=== PATIENT | female | born 1990 | race Caucasian/White ===

== ENCOUNTER 2017-03-22 05:44 | Emergency (ER) | payer SELFPAY ==
[2017-03-22] MEDS ORDERED: Ketorolac 30 MG/ML SDV IVPUSH ONE (05:59)
[2017-03-22] MEDS ORDERED: Ondansetron 4 MG/2 ML SDV IVPUSH ONE (05:59)
[2017-03-22] MEDS ORDERED: Sodium Chloride 0.9% 10 ML Syringe FLUSH PRN (06:00)
--- NOTE | 2017-03-22 06:05 | EDM.PDOC ---
<Jaelyn Hodges - Last Filed: 03/22/17 06:17> ED HPI GENERAL MEDICAL PROBLEM - General Chief Complaint: Lower Extremity Injury/Pain Stated Complaint: Right knee pain Time Seen by Provider: 03/22/17 05:50 Source of Information: Reports: Patient History Limitations: Reports: Intoxication - History of Present Illness INITIAL COMMENTS - FREE TEXT/NARRATIVE: Patient comes in to the emergency department tonight with her sister who states that the patient was crying in her bed because of the pain. Prior to that the patient remembers that early in she tripped and fell landing on her right knee after that she noted that she had significant amount of discomfort and pain and abrasion. She has been unable to bear weight on that M and states she has limited range of motion because of the pain. Patient denies hitting the head in dizzy or lightheaded. Denies having numbness or tingling in that extremity. Pt has had a significant amount of alcohol. Onset: Sudden Quality: Reports: Throbbing Severity: Moderate Improves with: Reports: Immobilization Worsens with: Reports: Movement Associated Symptoms: Reports: No Other Symptoms - Related Data Allergies Allergy/AdvReac Type Severity Reaction Status Date / Time No Known Allergies Allergy Verified 03/22/17 05:57 Home Meds: Home Meds . [No Known Home Meds] 03/22/17 [History] Review of Systems - Review of Systems Constitutional: Reports: No Symptoms Eyes: Reports: No Symptoms Ears: Reports: No Symptoms Respiratory: Reports: No Symptoms Cardiovascular: Reports: No Symptoms Musculoskeletal: Reports: Leg Pain (right knee pain ) ED EXAM, GENERAL - Physical Exam Exam Limited By: Intoxication General Appearance: Alert, No Apparent Distress Head: Atraumatic, Normocephalic Neck: Normal Inspection, Non-Tender, Full Range of Motion Respiratory/Chest: No Respiratory Distress, Lungs Clear, Normal Breath Sounds Cardiovascular: Normal Peripheral Pulses, Regular Rate, Rhythm Extremities: Leg Pain, Limited Range of Motion (right knee pain- julia size abrasion. Limited ROM due to pain. Negative Drawer test) Neurological: Alert, Oriented, CN II-XII Intact Skin Exam: Warm, Dry, Intact, Normal Color, No Rash Course - Vital Signs Last Recorded V/S: Last Vital Signs Temp 35.8 C 03/22/17 05:45 Pulse 100 01/21/18 05:45 Resp 16 03/22/17 05:45 BP 128/72 03/22/17 05:45 Pulse Ox 99 03/22/17 05:45 - Orders/Labs/Meds Orders: Active Orders 24 hr Category Date Time Status Knee 1V or 2V Rt [CR] Stat Exams 03/22/17 05:58 Taken Sodium Chloride 0.9% [Saline Flush] Med 03/22/17 06:00 Active 10 ml FLUSH ASDIRECTED PRN Peripheral IV Insertion Adult [OM.PC] Routine Oth 03/22/17 06:00 Ordered Medication Orders Sodium Chloride (Saline Flush) 10 ml FLUSH ASDIRECTED PRN PRN Reason: Keep Vein Open Meds: Medications Generic Name Dose Route Start Last Admin Trade Name Freq PRN Reason Stop Dose Admin Sodium Chloride 10 ml 03/22/17 06:00 Saline Flush FLUSH ASDIRECTED PRN Keep Vein Open Discontinued Medications Generic Name Dose Route Start Last Admin Trade Name Freq PRN Reason Stop Dose Admin Ketorolac Tromethamine 30 mg 03/22/17 05:59 03/22/17 06:21 Toradol IVPUSH 03/22/17 06:00 30 mg ONETIME ONE Administration Ondansetron HCl 4 mg 03/22/17 05:59 03/22/17 06:21 Zofran IVPUSH 03/22/17 06:00 4 mg ONETIME ONE Administration Departure - Departure Disposition: Home, Self-Care 01 Clinical Impression: Right knee injury Qualifiers: Encounter type: initial encounter Qualified Code(s): S89.91XA - Unspecified injury of right lower leg, initial encounter Fall Qualifiers: Encounter type: initial encounter Qualified Code(s): W19.XXXA - Unspecified fall, initial encounter Right knee sprain Qualifiers: Encounter type: initial encounter Involved ligament of knee: unspecified ligament Qualified Code(s): S83.91XA - Sprain of unspecified site of right knee , initial encounter - Discharge Information Instructions: Knee Sprain, [id number] Referrals: PCP,Unobtain [Primary Care Provider] - Forms: ED Department Discharge Additional Instructions: 1. Stay well hydrated and rest 2. Rest, elevate, and ice right knee several times a day 3. May alternate Tylenol/Advil as needed 4. Wear NGHIA wrap at all times 5. See your Primary as symptoms warrant 6. Call with any questions/concerns <Travis Munoz - Last Filed: 03/22/17 07:08> ED HPI GENERAL MEDICAL PROBLEM Right Knee Pain Score (Numeric/FACES): 8 Review of Systems - Review of Systems Review Of Systems: See Below ED EXAM, GENERAL - Physical Exam Exam: See Below Course - Radiology Interpretation Free Text/Narrative:: Xray Right Knee 1-2V: Normal right knee xrays - see scanned report in EMR Departure - Departure Time of Disposition: 07:05 Condition: Good - Problem List Review Problem List Initiated/Reviewed/Updated: Yes
== END 2017-03-22 07:18 | disposition home or self-care (01) ==
LOC: VM.ED 05:44
DX: S83.91XA Sprain of unspecified site of right knee, initial encounter (principal); F10.129 Alcohol abuse with intoxication, unspecified; W01.0XXA Fall on same level from slipping, tripping and stumbling without subsequent striking against object, initial encounter
CPT/HCPCS: 73560; 96374; 96375; 99283; J1885; J2405

== ENCOUNTER 2021-04-30 16:39 | Emergency (ER) | payer BC ==
[2021-04-30] MEDS ORDERED: Sodium Chloride 0.9% 10 ML Syringe FLUSH PRN (16:51)
[2021-04-30] MEDS: Sodium Chloride 0.9% 1,000 ML IV SCH (17:11)
[2021-04-30] MEDS: Acetaminophen 500 MG Tab PO ONE (17:12)
[2021-04-30 17:35] LABS: CHLORIDE,CL 100 mmol/L (98-107); SODIUM,NA 137 mmol/L (136-145)
[2021-04-30 17:36] LABS: ANION GAP 15.4 mmol/L (5-15)
[2021-04-30] MEDS: cefTRIAXone 2 GM Vial IVPUSH ONE (17:40)
== END 2021-04-30 18:39 | disposition home or self-care (01) ==
LOC: VM.ED 16:39
DX: N39.0 Urinary tract infection, site not specified (principal); Z72.0 Tobacco use
CPT/HCPCS: 36415; 80053; 81001; 81025; 83605; 83735; 84100; 85025; 86140; 87040; 87086; 87088; 87186; 96374; 99284; 99284-25; A9270-GY; J0696; J7030